=== PATIENT | male | born 1980 | race Caucasian/White ===

== ENCOUNTER 2016-12-18 11:38 | Emergency (ER) | payer MEDICAID ==
[~2016-12-18] VITALS: Ht 165.1 cm; Wt 70.0 kg
[2016-12-18] MEDS ORDERED: IBUPROFEN 600 MG TABLET PO ONE (12:00)
[2016-12-18 14:19] LABS: APPEARANCE,URINE CLEAR (CLEAR); GLUCOSE, URINE (UA) NEGATIVE (NEGATIVE); KETONES,URINE NEGATIVE (NEGATIVE); LEUKOCYTE ESTERASE ,URINE NEGATIVE (NEGATIVE); OCCULT BLOOD,URINE NEGATIVE (NEGATIVE); PROTEIN,URINE NEGATIVE (NEGATIVE)
[2016-12-18 14:21] LABS: RBC,URINE None Seen /HPF (0-2); WBC,URINE None Seen /HPF (0-5)
[2016-12-18] MEDS ORDERED: LIDOCAINE HCL/PF 1% 2 ML VIAL IM ONE (15:00)
[2016-12-18] MEDS ORDERED: CefTRIAXone SODIUM 1 GM/VIAL IM ONE (15:00)
[2016-12-18] MEDS ORDERED: DOXYCYCLINE 100 MG CAPSULE PO ONE (15:00)
[2016-12-18 15:03] VITALS: BP 130/82
[2016-12-20 01:25] LABS: GC DNA N.A. AMPLIFY Negative (Negative)
== END 2016-12-18 15:39 | disposition home or self-care (01) ==
LOC: EMS 11:40
DX: N50.811 Right testicular pain (principal)
CPT/HCPCS: 76870; 81001; 87491; 87591; 96372; 99285; J0696; J3490